=== PATIENT | female | born 1965 | race Caucasian/White ===

== ENCOUNTER 2018-12-16 13:40 | Day surgery (SDC) | payer OTHER ==
[~2018-12-16] VITALS: Ht 154.9 cm; Wt 77.5 kg
[~2018-12-16 13:40] MED LIST: ACETAZOLAMIDE; AMBIEN; EFFEXOR; ETAN50PE3 SQ; METO10TA92 PO; OMEP20CA17 PO; OMEP40CA38 PO; PANT40TA4 PO; RANI300T PO; TOPAMAX
[2018-12-16 14:52] VITALS: Ht 154.9 cm; Wt 77.5 kg
[2018-12-16 15:40] VITALS: BP 134/79; PULSE 67; RESP 18
[2018-12-16] MEDS ORDERED: FENTAnyl 50 MCG/ML VIAL ONE (16:57)
[2018-12-16] MEDS ORDERED: MIDAZOLAM 1 MG/ML 2 ML INJ ONE ×3 (16:57)
[2018-12-16 17:00] VITALS: BP 108/68; RESP 20
== END 2018-12-16 17:56 | disposition home or self-care (01) ==
LOC: GIL 13:40 → EEVIPCON 13:40 → GIL 13:48
PROVIDERS: ATTEND Internal Medicine Gastroenterology
DX: K44.9 Diaphragmatic hernia without obstruction or gangrene (principal); K20.9 Esophagitis, unspecified
CPT/HCPCS: 43239; J2250; J3010; Z7610; 88305; 88312